=== PATIENT | female | born 1990 | race Caucasian/White ===

== ENCOUNTER → 2025-01-26 13:09 | Outpatient (REF) | payer BC, SELFPAY ==
[2025-01-26 13:15] VITALS: BP 124/88; BP_SYST 78
[2025-01-26 14:35] VITALS: BP 124/88
== END ==
LOC: RADI 13:09
PROVIDERS: ATTENDING PHYSICIAN Specialist; FAMILY PHYSICIAN Family Medicine
DX: L76.34 Postprocedural seroma of skin and subcutaneous tissue following other procedure (principal); Y83.8 Other surgical procedures as the cause of abnormal reaction of the patient, or of later complication, without mention of misadventure at the time of the procedure
CPT/HCPCS: 10030

== ENCOUNTER → 2025-09-09 10:23 | Outpatient (REF) | payer BC, SELFPAY ==
[2025-09-09 10:50] VITALS: BP 125/80; BP_SYST 70
== END ==
LOC: RADI 10:23
PROVIDERS: ATTENDING PHYSICIAN Specialist
DX: L76.34 Postprocedural seroma of skin and subcutaneous tissue following other procedure (principal); Y83.8 Other surgical procedures as the cause of abnormal reaction of the patient, or of later complication, without mention of misadventure at the time of the procedure
CPT/HCPCS: 10160